=== PATIENT | male | born 1990 | race Caucasian/White ===

== ENCOUNTER 2019-07-11 22:10 | Emergency (ER) | payer SELFPAY ==
[2019-07-11 22:17] VITALS: BP 125/80; PULSE 81; RESP 18; TEMP 36.4; O2SAT 98; BMI 29.0
--- NOTE | 2019-07-11 22:24 | ED_ITS ---
HPI - Dental/Oral General: Chief complaint: Dental/Oral Stated complaint: dental pain/swelling Time Seen by Provider: 07/11/19 22:14 History of Present Illness: HPI Narrative: Patient is a 28-year-old male who comes to the ED with dental pain and swelling. Patient says left lower mandible dental pain started about 2 weeks ago and has continued to progress. The pain is gotten more severe and the swelling is gotten worse as well. pain rated a 10 out of 10. Patient says his tongue has felt swollen and he is having trouble swallowing. Patient states he has had fevers recently. Associated symptoms: Reports fever(s) and painful swallowing Review of Systems Const: Reports: fever; Denies: chills or fatigue Eyes: Denies: change in vision or eye discomfort ENMT: Reports: painful swallowing, swelling of lips/tongue, dental pain and facial/sinus pain (left lower mandible pain and tenderness in neck); Denies: throat pain, nasal discharge or nasal congestion Card: Denies: chest pain, palpitations, edema, swelling of feet/ankles, shortness of breath on exertion or shortness of breath when lying down Resp: Denies: shortness of breath, productive cough or non-productive cough GI: Denies: abdominal pain, nausea, vomiting, diarrhea, constipation or blood in stool : Denies: flank pain, difficulty urinating, painful urination or blood in urine Musc: Denies: neck pain, back pain or extremity swelling Skin/Breast: Denies: rash or new lesion Neuro: Denies: headache, numbness in extremities or weakness in extremities PFS ED PFSH: Social History Smoking and tobacco status: current every day smoker Physical Exam Const: COMMON NORMALS: oriented x3 and alert GENERAL APPEARANCE: ill appearing (pt appeared to be in some discomfort due to dental pain) HENMT: COMMON NORMALS: normocephalic, external nose normal and moist oral mucous membranes HEAD & SCALP: normocephalic FACE & SINUS: facial edema on the left and facial tenderness on the left NOSE: external nose normal MOUTH: oral and palatal mucosa normal TEETH & GINGIVA: Yes gingiva abnormal edematous and diffusely erythematous (left lower mandible) and Yes poor dentition (throughout mouth) THROAT: posterior oropharynx normal and uvula midline Neck/C-Spine: COMMON NORMALS: supple GENERAL: Yes normal visual inspection, Yes anterior neck swelling (left anterior cervical neck swelling), Yes tender (left anterior cervical neck tenderness) and Yes mass anterior and left Resp: COMMON NORMALS: normal respiratory effort, no retractions, no use of accessory muscles and clear to auscultation bilaterally AUSCULTATION: clear to auscultation bilaterally Cardio: COMMON NORMALS: regular rate, regular rhythm, S1 normal heart sound, S2 normal heart sound, no gallops, no clicks, no murmurs and peripheral pulses 2+ throughout RATE: regular rate RHYTHM: regular rhythm HEART SOUNDS: S1 normal and S2 normal PERIPHERAL PULSES: pulses 2+ throughout GI: COMMON NORMALS: normal to inspection, nondistended, normoactive bowel sounds, soft to palpation, non-tender and no masses PALPATION: Yes soft : COMMON NORMALS: Yes no CVA tenderness BLADDER/KIDNEY EXAM: Yes no CVA tenderness Back/Pelvis: COMMON NORMALS: no CVA tenderness Extremity: COMMON NORMALS: normal to inspection Neuro: COMMON NORMALS: oriented x3 and moves all extremities SENSORIUM/ORIENTATION: Yes alert Skin: COMMON NORMALS: no rashes or lesions noted GENERAL SKIN EXAM: no rashes or lesions noted and dry skin Course Reevaluation(s): Reevaluation #1: After hydrocodone patient still complaining of 8 out of 10 pain. Time: 23:25 Consultations: Consultation #1: I contacted the on-call oral surgeon at [facility] in [place] to discuss patient's case and CT findings of an abscess. I spoke with Dr. Zurita and he wanted to have the patient transferred and admitted over to [facility] and then he would see patient tonight and look at CT scan and possibly do surgery tonight or tomorrow. Time: 00:14 Consultation #2: After talking to the oral surgeon investor relations manager, I was put in contact with Dr. Vasquez at [facility] in [place] and told him about patient's case and they accepted him for admission. Time: 00:26 Vital Signs: Vital signs: Vital Signs Temperature 97.5 F L 07/11/19 22:17 Pulse Rate 81 07/11/19 22:17 Respiratory Rate 18 07/11/19 23:26 Blood Pressure 125/80 07/11/19 22:17 Pulse Oximetry 98 07/11/19 22:17 MDM - Dental/Oral MDM Narrative: Medical decision making narrative: Patient is a 28-year-old male that comes to the ED with dental pain and swelling. Patient was complaining of swelling under the tongue and having trouble swallowing. Physical exam showed some left lower mandible facial swelling and some left submandibular swelling and tenderness. CBC showed an elevated white blood cell count of 13. CT of the neck was performed and it showed a periapical infection of the lower left second molar with destruction of the medial mandibular cortex. An adjacent abscess of 2.9 x 0.9 x 1.7 cm on the medial left mandible. There is also left submandibular and superficial cellulitis. I contacted [facility] in [place] and spoke with their investor relations manager oral surgeon Dr. Zurita and he thought patient should be transferred and admitted at [facility] so he can perform surgery to drain abscess either tonight or tomorrow. Due to the location of the abscess he would not perform surgery in an outpatient setting, so admission to hospital was his recommendation. Patient was given IV fluids, morphine, clindamycin and dexamethasone while here in the ED. I told patient about the plan of care and to be transferred to [facility] in [place] and he agreed with care plan and is glad to be getting dental pain and abscess addressed. Lab Data: Attestation: I reviewed the patient's lab results. Labs: Lab Results 07/11/19 07/11/19 Range/Units 22:50 22:50 WBC 13.0 H (4.0-10.0) 10^3/ uL RBC 4.84 (4.1-5.3) 10^6/u L Hgb 14.6 (11.7-16.6) g/dL Hct 42.7 (42.0-52.0) % MCV 88.2 (80-94) fL MCH 30.2 (28.0-34.0) pg MCHC 34.2 (30.0-36.0) g/dL RDW 11.8 L (12.1-15.1) % Plt Count 257 (130-400) 10^3/c mm MPV 10.2 (7.4-10.4) fL Neut % (Auto) 72.4 % Lymph % (Auto) 18.4 % Clinton % (Auto) 7.5 % Eos % (Auto) 1.0 % Baso % (Auto) 0.4 % Neut # (Auto) 9.4 H (1.8-7.7) 10^3/u L Lymph # (Auto) 2.4 (0.8-4.8) 10^3/u L Clinton # (Auto) 1.0 H (0.2-0.9) 10^3/u L Eos # (Auto) 0.1 (0.0-0.8) 10^3/u L Baso # (Auto) 0.1 (0.0-0.1) 10^3/u L Nucleated RBC % (a uto) 0 % Nucleated RBCs # 0.0 /100WBC Sodium 138 (136-145) mmol/L Potassium 3.4 L (3.5-5.1) mmol/L Chloride 98 (98-107) mmol/L Carbon Dioxide 25 (22-29) mmol/L Anion Gap 18.4 (5-19) BUN 6 (6-20) mg/dL Creatinine 0.7 (0.7-1.2) mg/dL GFR Calculation 133.3 H (90-130) mL/min Glucose 119 H (65-115) mg/dL Calculated Osmolal ity 283 L (285-295) mOsm/k g Calcium 9.5 (8.5-10.5) mg/dL Total Bilirubin 0.8 (0.15-1.2) mg/dL AST 34 (0-40) U/L ALT 41 (0-41) U/L Alkaline Phosphata se 114 (40-130) IU/L Total Protein 7.9 (6.6-8.7) g/dL Albumin 4.2 (3.5-5.2) g/dL Globulin 3.7 (1.3-4.6) g/dL Imaging Data^: Other CT: Attestation: I personally reviewed and interpreted this imaging study as follows: Radiologist's impression: [address] [address] [address] Scan Report Signed Patient: Yo Tuttle Unit #: [id number] : 1990 Age/Sex: 28 / M ADM Date: 07/11/19 Loc: ER Room/Bed: Attending Dr: Ordering Provider/Ordering MD: Abdiel Hills Date of Service: 07/11/19 Procedure(s): CT neck w con* [id number] Accession Number(s): [id number] Report Number: [id number] PROCEDURE INFORMATION: Exam: CT Neck With Contrast Exam date and time: 07/11/2019 10:48 PM Age: 28 years old Clinical indication: Dysphagia / difficulty swallowing; Other: Lt lower jaw dental pain with swelling; Patient HX: PT states his tongue has felt swollen and he is having trouble swallowing; Additional info: Dental pain left lower jaw with swelling TECHNIQUE: Imaging protocol: Computed tomography images of the neck with intravenous contrast. Total DLP: 601.48 mGy-cm Radiation optimization: All CT scans at this facility use at least one of these dose optimization techniques: automated exposure control; mA and/or kV adjustment per patient size (includes targeted exams where dose is matched to clinical indication); or iterative reconstruction. Contrast material: OMNI 300; Contrast volume: 95 ml; Contrast route: 18G; COMPARISON: No relevant prior studies available. FINDINGS: Nasopharynx: Unremarkable. Oropharynx: Unremarkable. No significant tonsillar enlargement. Hypopharynx: Unremarkable. Larynx: Unremarkable. Normal epiglottis. Retropharyngeal space: Unremarkable. Submandibular/Parotid glands: Mild stranding within the fat of the left submandibular compartment and superficial subcutaneous compartment. Thyroid: Normal. No enlarged or calcified nodules. Lymph nodes: Asymmetrically mildly enlarged left submandibular and left carotid chain lymph nodes. Trachea: Visualized trachea is unremarkable. Lungs: Unremarkable as visualized. Dental: Multiple bilateral upper and lower left cavities. Periapical lucency surrounding the medial root of the left lower 2nd molar with destruction of the medial mandibular cortex . Unerupted lower 3rd molars. Bones/joints: Unremarkable. No acute fracture. Soft tissues: Mild enlargement of the left temporalis muscle along the ramus of the mandible. Left perimandibular soft tissue thickening and stranding without a focal fluid collection identified. Mild thickening of the left platysma muscle. 2.9 x 0.9 x 1.7 cm hypodensity with peripheral enhancement along the medial aspect of the left mandible, suspicious for an abscess. CT/CT neck w con* [id number] IMPRESSION: 1. Periapical infection of the lower left 2nd molar with destruction of the medial mandibular cortex. 2. Adjacent 2.9 x 0.9 x 1.7 cm abscess along the medial left mandible. 3. Left submandibular and superficial cellulitis. 4. Reactive left submandibular and cervical lymphadenopathy. 5. Multiple dental caries. Radiation Dose CTDIVOL = (mGy): DLP = 601.48 (mGy-cm) Dictated By: Todd Knott Signed By: Todd Knott Signed Date/Time: 07/11/192333 DD/ 31 Discharge Plan Discharge Patient Disposition: Xfer Other Clinical Impression: Dental abscess, Dental caries Condition: Stable Referrals: [facility], [Family Provider] - Patient Instructions: Dental Abscess (ED) Activity Restrictions/Additional Instructions: Take antibiotic and steroid Dosepak as prescribed. Take ibuprofen or Tylenol for pain and fevers. I am providing you with a prescription for several hydrocodone to help with severe pain. Return to the ED if swelling continues to get worse and you are having trouble breathing. Stand Alone Forms: Work/School Release Coding Level of Care Code ED Marketing Compliance Manager for Jimena Fwnitin Exam Comprehensive
--- NOTE | 2019-07-11 22:33 | CTR_ITS ---
PROCEDURE INFORMATION: Exam: CT Neck With Contrast Exam date and time: 07/11/2019 10:48 PM Age: 28 years old Clinical indication: Dysphagia / difficulty swallowing; Other: Lt lower jaw dental pain with swelling; Patient HX: PT states his tongue has felt swollen and he is having trouble swallowing; Additional info: Dental pain left lower jaw with swelling TECHNIQUE: Imaging protocol: Computed tomography images of the neck with intravenous contrast. Total DLP: 601.48 mGy-cm Radiation optimization: All CT scans at this facility use at least one of these dose optimization techniques: automated exposure control; mA and/or kV adjustment per patient size (includes targeted exams where dose is matched to clinical indication); or iterative reconstruction. Contrast material: OMNI 300; Contrast volume: 95 ml; Contrast route: 18G; COMPARISON: No relevant prior studies available. FINDINGS: Nasopharynx: Unremarkable. Oropharynx: Unremarkable. No significant tonsillar enlargement. Hypopharynx: Unremarkable. Larynx: Unremarkable. Normal epiglottis. Retropharyngeal space: Unremarkable. Submandibular/Parotid glands: Mild stranding within the fat of the left submandibular compartment and superficial subcutaneous compartment. Thyroid: Normal. No enlarged or calcified nodules. Lymph nodes: Asymmetrically mildly enlarged left submandibular and left carotid chain lymph nodes. Trachea: Visualized trachea is unremarkable. Lungs: Unremarkable as visualized. Dental: Multiple bilateral upper and lower left cavities. Periapical lucency surrounding the medial root of the left lower 2nd molar with destruction of the medial mandibular cortex . Unerupted lower 3rd molars. Bones/joints: Unremarkable. No acute fracture. Soft tissues: Mild enlargement of the left temporalis muscle along the ramus of the mandible. Left perimandibular soft tissue thickening and stranding without a focal fluid collection identified. Mild thickening of the left platysma muscle. 2.9 x 0.9 x 1.7 cm hypodensity with peripheral enhancement along the medial aspect of the left mandible, suspicious for an abscess. CT/CT neck w con* [id number] IMPRESSION: 1. Periapical infection of the lower left 2nd molar with destruction of the medial mandibular cortex. 2. Adjacent 2.9 x 0.9 x 1.7 cm abscess along the medial left mandible. 3. Left submandibular and superficial cellulitis. 4. Reactive left submandibular and cervical lymphadenopathy. 5. Multiple dental caries. Radiation Dose CTDIVOL = (mGy): DLP = 601.48 (mGy-cm)
[2019-07-11] MEDS: HYDROcodone-acetaminophen 7.5-325 mg Tablet 1 TAB PO (22:50)
[2019-07-11] MEDS: clindamycin 150 mg Capsule 300 MG PO (22:50)
[2019-07-11] MEDS: sodium chloride 0.9% 1,000 ML 999 ML IV (22:53)
--- NOTE | 2019-07-11 23:04 | PC.NURSE ---
care and report handed off
[2019-07-11 23:09] LABS: Basophils # 0.1 10^3/uL (0.0-0.1); Basophils % 0.4 %; Eosinophils # 0.1 10^3/uL (0.0-0.8); Hematocrit 42.7 % (42.0-52.0); Hemoglobin 14.6 g/dL (11.7-16.6); Lymphocytes # 2.4 10^3/uL (0.8-4.8); Lymphocytes % 18.4 %; Mean Corpuscular HGB Conc 34.2 g/dL (30.0-36.0); Mean Corpuscular Hemoglobin 30.2 pg (28.0-34.0); Mean Corpuscular Volume 88.2 fL (80-94); Mean Platelet Volume 10.2 fL (7.4-10.4); Monocytes % 7.5 %; Neutrophils # 9.4 10^3/uL (1.8-7.7); Neutrophils % 72.4 %; Nucleated Red Blood Cells % 0 %; Platelet Count 257 10^3/cmm (130-400); Red Blood Count 4.84 10^6/uL (4.1-5.3); Red Cell Distribution Width 11.8 % (12.1-15.1)
[2019-07-11] MEDS: iohexol 300 mg/mL 100 mL Btl IV (23:11)
[2019-07-11 23:26] VITALS: RESP 18
[2019-07-11] MEDS: morphine 4 mg/mL SDV 1 mL IVP (23:26)
[2019-07-11 23:29] LABS: Alanine Aminotransferase 41 U/L (0-41); Albumin Level 4.2 g/dL (3.5-5.2); Alkaline Phosphatase 114 IU/L (40-130); Anion Gap 18.4 (5-19); Aspartate Amino Transferase 34 U/L (0-40); Blood Urea Nitrogen 6 mg/dL (6-20); Calcium 9.5 mg/dL (8.5-10.5); Carbon Dioxide 25 mmol/L (22-29); Chloride 98 mmol/L (98-107); Globulin 3.7 g/dL (1.3-4.6); Glomerular Filtration Rate 133.3 mL/min (90-130); Glucose 119 mg/dL (65-115); Osmolality Calculated 283 mOsm/kg (285-295); Potassium 3.4 mmol/L (3.5-5.1); Sodium 138 mmol/L (136-145); Total Bilirubin 0.8 mg/dL (0.15-1.2); Total Protein 7.9 g/dL (6.6-8.7)
[2019-07-12] MEDS: dexamethasone 10 mg/mL INJ IVP (00:01)
[2019-07-12] MEDS: clindamycin 600 MG/50 ML PREMIX 100 MG IV (00:03)
[2019-07-12 00:47] VITALS: BP 130/84; PULSE 84; RESP 18; TEMP 36.9; O2SAT 98
[2019-07-12 00:51] VITALS: BP 130/84; PULSE 84; RESP 18; TEMP 36.9; O2SAT 98
== END 2019-07-12 01:57 | disposition other institution (70) ==
PROVIDERS: Emergency Provider Physician Assistant
DX: K04.7 Periapical abscess without sinus (principal); K02.9 Dental caries, unspecified; F17.210 Nicotine dependence, cigarettes, uncomplicated
CPT/HCPCS: 12345; 70491; 80053; 85025; 87040; 96365; 96375; 99283; 99284; J1100; J2270; J3490; J7030; Q9967